=== PATIENT | female | born 1935 | race Caucasian/White ===

== ENCOUNTER → 2016-06-28 | Outpatient (CLI) | payer BC ==
--- NOTE | 2016-06-28 16:30 | MAMMOGRAPHY REPORT ---
BILATERAL DIGITAL SCREENING MAMMOGRAM WITH CAD: 06/28/2016 CLINICAL HISTORY: Routine screening. Patient has no complaints. TECHNIQUE: Bilateral CC and MLO views were obtained. Current study was also evaluated with a Comput er Aided Detection (CAD) system. COMPARISON: Comparison is made to exams dated: 06/24/2015 mammogram, 06/23/2014 mammogram, 06/20/2013 mammogram, 06/18/2012 mammogram, 04/28/2011 mammogram, and 03/17/2010 mammogram - [facility] enter. BREAST COMPOSITION: The tissue of both breasts is almost entirely fatty. FINDINGS: No suspicious mass, architectural distortion or cluster of microcalcifications is seen. IMPRESSION: ACR BI-RADS CATEGORY 1: NEGATIVE There is no mammographic evidence of malignancy. A 1 year screening mammogram is recommended. The p atient will receive written notification of the results. Approximately 10% of breast cancers are not detected with mammography. A negative mammographic repor t should not delay biopsy if a clinically suggestive mass is present. Traci Acosta M.D. ay/:06/28/2016 16:22:32 Tow Boat Captain: Zoila ALONZO(Deepak)(Mariella)(BD), [facility] letter sent: Normal 1/2 BI-RADS Code: ACR BI-RADS Category 1: Negative
== END | disposition home or self-care (01) ==
LOC: C.MAMM 10:26
PROVIDERS: ATTEND Family Medicine
DX: Z12.31 Encounter for screening mammogram for malignant neoplasm of breast (principal)

== ENCOUNTER → 2017-06-29 | Outpatient (CLI) | payer BC ==
--- NOTE | 2017-06-29 14:55 | MAMMOGRAPHY REPORT ---
BILATERAL DIGITAL SCREENING MAMMOGRAM TOMOSYNTHESIS WITH CAD: 06/29/2017 CLINICAL HISTORY: Routine screening. Patient has no complaints. TECHNIQUE: Breast tomosynthesis in addition to standard 2D mammography was performed. Current study was also evaluated with a Computer Aided Detection (CAD) system. COMPARISON: Comparison is made to exams dated: 06/28/2016 mammogram, 06/24/2015 mammogram, 06/23/2014 m ammogram, 06/20/2013 mammogram, 06/18/2012 mammogram, and 04/28/2011 mammogram - [facility] nter. BREAST COMPOSITION: The tissue of both breasts is almost entirely fatty. FINDINGS: No suspicious masses, calcifications, or areas of architectural distortion are noted in ei ther breast. There has been no significant interval change compared to prior exams. IMPRESSION: ACR BI-RADS CATEGORY 1: NEGATIVE There is no mammographic evidence of malignancy. A 1 year screening mammogram is recommended. The pa tient will receive written notification of the results. Approximately 10% of breast cancers are not detected with mammography. A negative mammographic report should not delay biopsy if a clinically suggestive mass is present. Mily Kendall M.D. /:06/29/2017 11:53:26 Surveying Technician: Jacquelin ALONZO(Deepak)(Mariella), [facility] letter sent: Normal 1/2 BI-RADS Code: ACR BI-RADS Category 1: Negative
== END | disposition home or self-care (01) ==
LOC: C.MAMM 11:10
PROVIDERS: ATTEND Family Medicine
DX: Z12.31 Encounter for screening mammogram for malignant neoplasm of breast (principal)

== ENCOUNTER 2024-01-14 14:34 | Observation (INO) ==
--- NOTE | 2024-01-14 14:58 | Emergency Department Note ---
Impression & Plan Knee pain, Ambulatory dysfunction, Effusion of right knee ED Provider Note NAME: CHRIS REID AGE: 88 SEX: F : 1935 ARRIVES VIA: Ambulance INFORMANT: Patient, EMS/nursing report ED PROVIDER(S): Randall Senior MD CHIEF COMPLAINT: Knee pain MEDICAL DECISION MAKING: Patient presents due to concern for knee pain. The patient had remarked that she thought maybe she had an insect bite weeks ago so blood work was obtained along with a Lyme's throughout the possibility of any sort of Lyme's arthritis although the patient does say that she has a prior history of pseudogout and this is similar. The patient is already anticoagulated and only has swelling to the knee there is no obvious swelling more proximally or distally do not believe requires a DVT ultrasound at this time. Patient's blood work shows a white count of 12 with a normal H&H and platelet count. The patient's kidney function is unremarkable. The patient should declined any pain medication although the patient recently taking prednisone and Tylenol. Lyme's negative. The patient did attempt to ambulate to and from the bathroom. X-ray of the knee does not show any obvious fracture or dislocation but does have some degenerative changes noted. Patient did have difficulty walking to from the bathroom. Patient does have decreased range of motion of the right knee secondary to pain. Believe stroke to be less likely in light of the knee swelling and pain. No sensory deficits able to flex and extend at the ankles without issue. Given the patient's ambulatory dysfunction and pain I did speak the on-call hospital service Dr. Caceres and the patient was admitted to medicine service. Discussion w/ other healthcare providers: Dr. Caceres inpatient medicine service Prior /Outside records reviewed: none Differential diagnosis: Fracture, subluxation, dislocation, contusion, ligamentous injury, neurovascular, compartment syndrome, rhabdomyolysis, as well as other pathologies. Diagnostics, as interpreted by me: ECG: None Cardiac monitoring: An order was placed for continuous cardiac monitoring. The monitor shows a rate of 85 with irregularly irregular rhythm. Patient was placed on pulse oximetry Medical decision rules: None Imaging studies: I informally interpreted the patient's knee x-ray does not show obvious fracture or dislocation with formal report to follow. HPI: Patient presents due to concern for right knee pain. The patient states that she was walking with some groceries and developed pain in the right knee. Patient denies any chest pains or shortness of breath no history of DVT or PE. The patient states that she has noted some swelling and has pain to the lateral as well as posterior aspect of the right knee. Patient reports that she does have a prior history of pseudogout. No history of gout. The patient did take a dose of prednisone and Tylenol but her pain is not improved and thus presented here for further evaluation treatment. Patient denies any numbness or weakness. Patient denies any trauma fall twisting turning or popping. Patient does report a known history of A-fib and does take Eliquis. She also follows with Dr. Grant. Patient states that she thought maybe she had a bug bite on her right lower extremity weeks ago but did not notice any obvious target rash. Patient denies any known Lyme's or tick bites in the past. PAST MEDICAL HISTORY: See Below PAST SURGICAL HISTORY: See Below SOCIAL HISTORY: See Below HOME MEDICATIONS: See Below ALLERGIES: See Below VITALS: See Below PHYSICAL EXAMINATION: GENERAL: NAD, non-toxic. EYE EXAM: Normal conjunctiva. PERRL, no anisocoria and EOM's grossly intact w/o pain. OROPHARYNX: Moist mucus membranes, grossly normal dentition. NECK: Trachea midline, no stridor. Supple, no nuchal rigidity, no adenopathy, non-tender. No signs of meningismus. FROM of the neck with good chin to chest and neck extension. LUNGS: Clear to auscultation. Normal chest wall mechanics. HEART: Irregularly irregular, no MRG. ABDOMEN: Abdomen soft, non-tender, no masses, no rebound or guarding. BACK: No CVA TTP. SKIN: No rashes and no bruising. UPPER EXTREMITIES: Upper extremities are grossly normal. LOWER EXTREMITIES: Mild effusion noted to the right knee, compartments are soft distally with no obvious lower extremity asymmetry bilaterally with exception of the right knee. No overlying erythema or calor to the right knee. Pain to the lateral and posterior aspect of the right knee without obvious deformity no leg length discrepancy. Good DP pulse in the right lower extremity. Compartments are soft throughout. NEURO EXAM: A&O x3, cranial nerves II-XII grossly intact, normal speech, moves all 4 extremities but with decreased range of motion of the right knee secondary to pain. Past Med/Surg History Problem List (Updated 01/14/24 @ 20:56 by Randall Senior MD) Effusion of right knee (Acute) Ambulatory dysfunction (Acute) Knee pain (Acute) Fatigue YOUSIF (dyspnea on exertion) Encounter for pre-operative examination Encounter for pre-operative examination Hypertension Atrial fibrillation dx 03/2023, currently on eliquis; f/u dr. grant Medical History Hypothyroidism Hx of wheezing "mainly in cold weather going upward">was given rescue inhaler, never used Osteoarthritis Acid reflux just occasional no meds Depression no meds Cardiac murmur dx 2019 Surgical History Hx of left cataract extraction History of right cataract surgery History of dilatation and curettage Skin cancer with removal to face and chest Social History Smoking Status: Never smoker Second Hand Exposure: No; Do You Dip or Chew Tobacco: No; Hx Alcohol Use: Yes Alcohol type: wine Hx Substance Use: No Preferred Language: Albanian Communication Ability: Effective Materials Tech Required: No Beliefs That Will Affect Care: None Current Living Situation: Other Current Living Situation Comment: [facility] Feels Safe at Home: Yes Assistive Devices: None Allergies Allergies Allergy/AdvReac Type Severity Reaction Status Date / Time No Known Allergies Allergy Verified 01/14/24 16:46 Home Meds Home Medications Medication Instructions Recorded Confirmed coenzyme Q10 100 mg capsule (Co 100 mg PO QPM 12/16/19 01/14/24 Q-10) apixaban 5 mg tablet (Eliquis) 5 mg PO BID 03/21/23 01/14/24 eplerenone 25 mg tablet 25 mg PO QAM 03/21/23 01/14/24 levothyroxine 25 mcg capsule 25 mcg PO QAM 03/21/23 01/14/24 diltiazem HCl 120 mg 120 mg PO DAILY 10/27/23 01/14/24 capsule,extended release 24 hr, controlled (DILT-XR) cholecalciferol (vitamin D3) 25 25 mcg PO QPM 01/14/24 01/14/24 mcg (1,000 unit) tablet (Vitamin D3) cyanocobalamin (vitamin B-12) 1,000 mcg PO QPM 01/14/24 01/14/24 1,000 mcg tablet (Vitamin B-12) Results & Data (ED) Vital Signs Vital Signs - 24 hr 01/14/24 14:40 01/14/24 14:55 01/14/24 14:56 Temperature 36.4 C L Temperature Source Oral Pulse Rate 103 H Pulse Rate [Apical] 91 H Pulse Rhythm [Apical] Regular Pulse Strength [Apical] Normal Respiratory Rate 20 19 Respiratory Effort / Characteristics Non-Labored Non-Labored Spontaneous Respiratory Depth Normal Normal Respiratory Pattern Regular Blood Pressure 175/100 H Blood Pressure [Right Arm] 181/99 H Blood Pressure Mean 125 Blood Pressure Mean [Right Arm] 126 Blood Pressure Position [Right Arm] Pulse Oximetry 96 98 98 Oxygen Delivery Method Room Air Room Air Room Air Sepsis Recent Fever Within 48 Hours No Sepsis New/Unexplained Change in Mental Status No Sepsis Action Taken by Nursing No Action Required 01/14/24 15:49 01/14/24 16:48 01/14/24 18:08 Temperature Temperature Source Pulse Rate 92 H Pulse Rate [Apical] 96 H 90 Pulse Rhythm [Apical] Regular Regular Pulse Strength [Apical] Normal Normal Respiratory Rate 22 18 Respiratory Effort / Characteristics Non-Labored Non-Labored Respiratory Depth Normal Normal Respiratory Pattern Regular Regular Blood Pressure Blood Pressure [Right Arm] 167/98 H Blood Pressure Mean Blood Pressure Mean [Right Arm] 121 Blood Pressure Position [Right Arm] Lying Lying Pulse Oximetry 96 98 Oxygen Delivery Method Room Air Room Air Sepsis Recent Fever Within 48 Hours Sepsis New/Unexplained Change in Mental Status Sepsis Action Taken by Nursing 01/14/24 18:52 01/14/24 20:29 Temperature Temperature Source Pulse Rate 86 Pulse Rate [Apical] 87 Pulse Rhythm [Apical] Regular Pulse Strength [Apical] Normal Respiratory Rate 17 Respiratory Effort / Characteristics Non-Labored Respiratory Depth Normal Respiratory Pattern Regular Blood Pressure Blood Pressure [Right Arm] 193/109 H Blood Pressure Mean Blood Pressure Mean [Right Arm] 137 Blood Pressure Position [Right Arm] Lying Pulse Oximetry 98 Oxygen Delivery Method Room Air Sepsis Recent Fever Within 48 Hours Sepsis New/Unexplained Change in Mental Status Sepsis Action Taken by [facility] Medications Current Medication List: was personally reviewed by me Laboratory Data Attestation: I reviewed the patient's lab results. 01/14/24 15:05 01/14/24 15:05 Lab Results 01/14/24 Range/Units 15:05 WBC 12.74 H (4.8-10.8) K/ul RBC 4.48 (4.20-5.40) M/uL Hgb 13.5 (12.0-16.0) g/dl Hct 40.6 (37.0-47.0) % MCV 90.6 (80.0-100.0) fL MCH 30.1 (25.0-34.0) pg MCHC 33.3 (32.0-36.0) g/dL RDW Std Deviation 45.5 (36.4-46.3) fL RDW Coeff of Libra 13.5 (11.5-14.5) % Plt Count 238 (130-400) K/uL MPV 10.0 (9.4-12.4) fL Immature Gran % (Auto) 0.5 % Neut % (Auto) 90.0 % Lymph % (Auto) 5.9 % Simpson % (Auto) 3.3 % Eos % (Auto) 0.1 % Baso % (Auto) 0.2 % Neut # (Auto) 11.46 H (1.40-6.50) K/uL Lymph # (Auto) 0.75 L (1.20-3.40) K/uL Simpson # (Auto) 0.42 (0.11-0.59) K/uL Eos # (Auto) 0.01 (0.00-0.50) K/uL Baso # (Auto) 0.03 (0.00-0.20) K/uL Immature Gran # (Auto) 0.07 (0.01-0.20) K/uL Sodium 139 (136-145) mmol/L Potassium 4.1 (3.5-5.1) mmol/L Chloride 104 (98-107) mmol/L Carbon Dioxide 26 (21-32) mmol/L Anion Gap 9 (3-11) BUN 25 H (6-23) mg/dl Creatinine 0.88 (0.6-1.2) mg/dl Est Cr Clr Drug Dosing 48.8 ml/min eGFR 63.96 BUN/Creatinine Ratio 28.4 H (10-20) Glucose 123 H (70-99(Fasting)) mg/dl Calcium 9.5 (8.6-10.3) mg/dl Total Bilirubin 0.4 (0.2-1.0) mg/dl AST 25 (13-39) U/L ALT 19 (7-52) U/L Alkaline Phosphatase 102 (34-104) U/L Total Protein 7.5 (6.0-8.3) gm/dl Albumin 4.5 (3.4-5.0) gm/dl Globulin 3.0 (2.5-4.0) gm/dl Albumin/Globulin Ratio 1.5 (0.9-2) Lyme Disease Screen Negative (Negative) Administered Medications Discontinued Medications Colchicine (Colchicine 0.6 Mg Tab) 0.6 mg PO NOW ONE Stop: 01/14/24 20:04 Last Admin: 01/14/24 20:30 Dose: 0.6 mg Documented By: TANISHA Lidocaine (Lidocaine 5% 1 Patch) 1 patch TD NOW STA Stop: 01/14/24 14:56 Last Admin: 01/14/24 15:07 Dose: 1 patch Documented By: TANISHA Methylprednisolone (Methylprednisolone 125 Mg/2 Ml Vial) 40 mg IV NOW STA Stop: 01/14/24 20:04 Last Admin: 01/14/24 20:30 Dose: 40 mg Documented By: TANISHA Morphine Sulfate (Morphine Sulfate 2 Mg/Ml Carp) 2 mg IV NOW STA Stop: 01/14/24 14:53 Last Admin: 01/14/24 15:18 Dose: Not Given Documented By: TANISHA Morphine Sulfate (Morphine Sulfate 2 Mg/Ml Carp) 2 mg IV NOW STA Stop: 01/14/24 18:22 Last Admin: 01/14/24 18:27 Dose: 2 mg Documented By: TANISHA Discharge Plan Visit Data Chief Complaint: Knee Injury/Pain Stated Complaint: KNEE INJURY ED Provider: Randall Senior Discharge Problem: Knee pain, Ambulatory dysfunction, Effusion of right knee Forms Stand Alone Forms: My [facility] Medical Referral Source Prescriptions Prescriptions: No Action Eliquis 5 mg tablet 5 mg PO BID eplerenone 25 mg tablet 25 mg PO QAM levothyroxine 25 mcg capsule 25 mcg PO QAM diltiazem HCl [DILT-XR] 120 mg capsule,ext.rel 24h degradable 120 mg PO DAILY coenzyme Q10 [Co Q-10] 100 mg Capsule 100 mg PO QPM cyanocobalamin (vitamin B-12) [Vitamin B-12] 1,000 mcg Tablet 1,000 mcg PO QPM cholecalciferol (vitamin D3) [Vitamin D3] 25 mcg (1,000 unit) Tablet 25 mcg PO QPM Referrals Referrals: Eladio Knight [Primary Care Provider] - Discharge Problem: Knee pain Qualifiers: Chronicity: acute Laterality: right Qualified Code(s): M25.561 - Pain in right knee
[2024-01-14] MEDS: LIDOCAINE 5% 1 PATCH TD STA (15:07)
[2024-01-14] MEDS: MoRPHine SULFATE 2 MG/ML CARP IV STA ×2 (15:18→18:27)
[2024-01-14 15:29] LABS: Basophils # (auto) 0.03 K/uL (0.00-0.20); Basophils % (auto) 0.2 %; Eosinophils # (auto) 0.01 K/uL (0.00-0.50); Eosinophils % (auto) 0.1 %; Hematocrit (blood only) 40.6 % (37.0-47.0); Hemoglobin 13.5 g/dl (12.0-16.0); Immature Granulocytes # (auto) 0.07 K/uL (0.01-0.20); Immature Granulocytes % (auto) 0.5 %; Lymphocytes # (auto) 0.75 K/uL (1.20-3.40); Lymphocytes % (auto) 5.9 %; Mean Corpuscular Hemoglobin 30.1 pg (25.0-34.0); Mean Corpuscular Hgb Conc 33.3 g/dL (32.0-36.0); Mean Corpuscular Volume 90.6 fL (80.0-100.0); Monocytes # (auto) 0.42 K/uL (0.11-0.59); Monocytes % (auto) 3.3 %; Neutrophils # (auto) 11.46 K/uL (1.40-6.50); Platelet Count 238 K/uL (130-400); RDW Coefficient of Variation 13.5 % (11.5-14.5); RDW Standard Deviation 45.5 fL (36.4-46.3); Red Blood Count 4.48 M/uL (4.20-5.40); White Blood Count 12.74 K/ul (4.8-10.8)
[2024-01-14 15:47] LABS: Alanine Aminotransferase 19 U/L (7-52); Albumin Globulin Ratio 1.5 (0.9-2); Albumin Level 4.5 gm/dl (3.4-5.0); Alkaline Phosphatase 102 U/L (34-104); Anion Gap 9 (3-11); Aspartate Aminotransferase 25 U/L (13-39); BUN Creatinine Ratio 28.4 (10-20); Bilirubin,Total 0.4 mg/dl (0.2-1.0); Blood Urea Nitrogen 25 mg/dl (6-23); Calcium 9.5 mg/dl (8.6-10.3); Carbon Dioxide 26 mmol/L (21-32); Chloride 104 mmol/L (98-107); Creatinine Clr Calc Pharmacy 48.8 ml/min; Glucose 123 mg/dl (70-99(Fasting)); Potassium 4.1 mmol/L (3.5-5.1); Sodium 139 mmol/L (136-145); Total Protein 7.5 gm/dl (6.0-8.3)
[2024-01-14] MEDS ORDERED: HYDROCODONE/ACETAMOPHEN 5/325MG TAB PO PRN (20:03)
[2024-01-14] MEDS ORDERED: MoRPHine SULFATE 2 MG/ML CARP IV PRN (20:03)
--- NOTE | 2024-01-14 20:08 | History & Physical Report ---
Date of Service January 14, 2024 Assessment & Plan (1) Effusion of right knee: (2) Ambulatory dysfunction: (3) Knee pain: (4) Hypertension: (5) Atrial fibrillation: Plan Large suprapatellar right knee effusion/[id number] medial compartment degeneration- Patient with acute onset of severe right knee pain, swelling and decreased ability to ambulate History of gout and pseudogout Add uric acid level to current labs Give Solu-Medrol 40 mg IV now, then 20 mg IV every 8 hours Colchicine 0.6 mg p.o. now, then twice daily Acetaminophen 650 mg by mouth every 6 hours as needed for mild pain or fever Hydrocodone/APAP 5/325, 1 every 6 hours as needed for moderate pain Morphine sulfate 2 mg IV every 3 hours as needed for severe pain Order CT scan of right knee without contrast Consult orthopedic surgery Dr. Reddy Atrial fibrillation/hypertension- Continue apixaban, diltiazem and eplerenone History of Present Illness Chief Complaint: The patient presents to the emergency department with the acute onset of severe right knee pain, with inability to flex her knee and walk. Primary Care Provider: Eladio Knight The patient is an 88-year-old female with a past medical history including hypertension, atrial fibrillation on chronic anticoagulation, vitamin D deficiency, hypertension, hypothyroidism, pseudogout and gout. She presents to the emergency department with the acute onset of severe right knee pain, with inability to bear weight due to the pain and decreased ability to ambulate due to the pain and stiffness. She has had both gout and pseudogout in this knee in the past, but has been several years, and the pain typically was not quite as severe and did not last as long. She did take a prednisone 10 mg pill and Tylenol without improvement while at home, and thus presented to the ED for assessment. She denies any recent change in oral intake. She denies any recent trauma. She questioned whether she may have had an insect bite several weeks ago, but did not have any associated rash. Allergies Allergy/AdvReac Type Severity Reaction Status Date / Time No Known Allergies Allergy Verified 01/14/24 16:46 Home Medications Medication Instructions Recorded Confirmed Type coenzyme Q10 100 mg capsule (Co 100 mg PO QPM 12/16/19 01/14/24 History Q-10) apixaban 5 mg tablet (Eliquis) 5 mg PO BID 03/21/23 01/14/24 History eplerenone 25 mg tablet 25 mg PO QAM 03/21/23 01/14/24 History levothyroxine 25 mcg capsule 25 mcg PO QAM 03/21/23 01/14/24 History diltiazem HCl 120 mg 120 mg PO DAILY 10/27/23 01/14/24 History capsule,extended release 24 hr, controlled (DILT-XR) cholecalciferol (vitamin D3) 25 25 mcg PO QPM 01/14/24 01/14/24 History mcg (1,000 unit) tablet (Vitamin D3) cyanocobalamin (vitamin B-12) 1,000 mcg PO QPM 01/14/24 01/14/24 History 1,000 mcg tablet (Vitamin B-12) Past Med/Surg History Problem List (Updated 01/14/24 @ 20:56 by Randall Senior MD) Effusion of right knee (Acute) Ambulatory dysfunction (Acute) Knee pain (Acute) Fatigue YOUSIF (dyspnea on exertion) Encounter for pre-operative examination Encounter for pre-operative examination Hypertension Atrial fibrillation dx 03/2023, currently on eliquis; f/u dr. grant Medical History Hypothyroidism Hx of wheezing "mainly in cold weather going upward">was given rescue inhaler, never used Osteoarthritis Acid reflux just occasional no meds Depression no meds Cardiac murmur dx 2019 Surgical History Hx of left cataract extraction History of right cataract surgery History of dilatation and curettage Skin cancer with removal to face and chest Social History Smoking Status: Never smoker Second Hand Exposure: No; Do You Dip or Chew Tobacco: No; Hx Alcohol Use: No Hx Substance Use: No Preferred Language: Sinhala Communication Ability: Effective Weed Cutter Required: No Beliefs That Will Affect Care: None Current Living Situation: Alone Current Living Situation Comment: [facility] Feels Safe at Home: Yes Assistive Devices: Other Review of Systems Review of Systems: The patient denies chest pain, palpitations, shortness of breath, dyspnea on exertion, cough, sore throat, fevers, chills, sweats, nausea, vomiting, diarrhea , constipation, abdominal pain, pelvic pain, blood in urine or stool, dysuria, urinary frequency or urgency, lightheadedness, dizziness, headache, memory loss, loss of consciousness, rash, abnormal bruising or bleeding, focal or generalized weakness, numbness or tingling in arms or left leg, generalized arthralgias or myalgias, back or neck pain, or night sweats. The review of systems is otherwise negative other than for that already noted above, and at least 10 systems have been reviewed. Physical Exam Physical Exam: The patient is awake, alert and oriented 3, well developed and well nourished, normocephalic and atraumatic, lying in bed and in no acute distress. HEENT--PERRL, EOMI, mucous membranes and oropharynx normal Neck--supple. No JVD. No bruits. Thyroid normal, trachea midline, no adenopathy. Heart--normal S1 and S2. No murmurs, rubs or gallops. Lungs--clear bilaterally, no respiratory distress, no accessory muscle use. Abdomen--normal bowel sounds and soft. Nontender. Nondistended, no hernias or masses, no organomegaly. Extremities--right knee in Reddy wrap with ice and Lidoderm patch applied Dermatologic--normal skin turgor, normal color, no abnormal lymph nodes, no rash. Neurologic--cranial nerves II through XII grossly intact. Rheumatologic--normal range of motion except for right knee Psychiatric--normal affect. Results & Data Results & Data Vital Signs (Past 12 Hours) Vital Signs Temp Pulse Pulse Resp BP BP Pulse Ox 01/14/24 18:52 86 01/14/24 18:08 90 18 98 01/14/24 16:48 96 H 22 167/98 H 96 01/14/24 15:49 92 H 01/14/24 14:56 98 01/14/24 14:55 91 H 19 181/99 H 98 01/14/24 14:40 36.4 C L 103 H 20 175/100 H 96 O2 Del Method 01/14/24 18:52 01/14/24 18:08 Room Air 01/14/24 16:48 Room Air 01/14/24 15:49 01/14/24 14:56 Room Air 01/14/24 14:55 Room Air 01/14/24 14:40 Room Air Laboratory Results Laboratory Results WBC 12.74 K/ul (4.8-10.8) H 01/14/24 15:05 RBC 4.48 M/uL (4.20-5.40) 01/14/24 15:05 Hgb 13.5 g/dl (12.0-16.0) 01/14/24 15:05 Hct 40.6 % (37.0-47.0) 01/14/24 15:05 MCV 90.6 fL (80.0-100.0) 01/14/24 15:05 MCH 30.1 pg (25.0-34.0) 01/14/24 15:05 MCHC 33.3 g/dL (32.0-36.0) 01/14/24 15:05 RDW Std Deviation 45.5 fL (36.4-46.3) 01/14/24 15:05 RDW Coeff of Libra 13.5 % (11.5-14.5) 01/14/24 15:05 Plt Count 238 K/uL (130-400) 01/14/24 15:05 MPV 10.0 fL (9.4-12.4) 01/14/24 15:05 Immature Gran % (Auto) 0.5 % 01/14/24 15:05 Neut % (Auto) 90.0 % 01/14/24 15:05 Lymph % (Auto) 5.9 % 01/14/24 15:05 [place] % (Auto) 3.3 % 01/14/24 15:05 Eos % (Auto) 0.1 % 01/14/24 15:05 Baso % (Auto) 0.2 % 01/14/24 15:05 Neut # (Auto) 11.46 K/uL (1.40-6.50) H 01/14/24 15:05 Lymph # (Auto) 0.75 K/uL (1.20-3.40) L 01/14/24 15:05 [place] # (Auto) 0.42 K/uL (0.11-0.59) 01/14/24 15:05 Eos # (Auto) 0.01 K/uL (0.00-0.50) 01/14/24 15:05 Baso # (Auto) 0.03 K/uL (0.00-0.20) 01/14/24 15:05 Immature Gran # (Auto) 0.07 K/uL (0.01-0.20) 01/14/24 15:05 Sodium 139 mmol/L (136-145) 01/14/24 15:05 Potassium 4.1 mmol/L (3.5-5.1) 01/14/24 15:05 Chloride 104 mmol/L (98-107) 01/14/24 15:05 Carbon Dioxide 26 mmol/L (21-32) 01/14/24 15:05 Anion Gap 9 (3-11) 01/14/24 15:05 BUN 25 mg/dl (6-23) H 01/14/24 15:05 Creatinine 0.88 mg/dl (0.6-1.2) 01/14/24 15:05 Est Cr Clr Drug Dosing 48.8 ml/min 01/14/24 15:05 eGFR 63.96 01/14/24 15:05 BUN/Creatinine Ratio 28.4 (10-20) H 01/14/24 15:05 Glucose 123 mg/dl (70-99(Fasting)) H 01/14/24 15:05 Calcium 9.5 mg/dl (8.6-10.3) 01/14/24 15:05 Total Bilirubin 0.4 mg/dl (0.2-1.0) 01/14/24 15:05 AST 25 U/L (13-39) 01/14/24 15:05 ALT 19 U/L (7-52) 01/14/24 15:05 Alkaline Phosphatase 102 U/L (34-104) 01/14/24 15:05 C-Reactive Protein < 0.50 mg/dl (0-0.5) 01/14/24 15:05 Total Protein 7.5 gm/dl (6.0-8.3) 01/14/24 15:05 Albumin 4.5 gm/dl (3.4-5.0) 01/14/24 15:05 Globulin 3.0 gm/dl (2.5-4.0) 01/14/24 15:05 Albumin/Globulin Ratio 1.5 (0.9-2) 01/14/24 15:05 Lyme Disease Screen Negative (Negative) 01/14/24 15:05 Impressions Knee X-Ray 01/14/24 16:43 EXAMINATION: X-ray knee right 1 or 2 view CLINICAL HISTORY: Right knee pain, swelling, no injury PRIORS: None TECHNIQUE: 2 views right knee FINDINGS: Bone stock is normal. Moderate to advanced degenerative change of the medial compartment. Moderate degenerative change of the lateral and patellofemoral compartment. Chondrocalcinosis is noted. A large suprapatella joint effusion present on the crosstable lateral. No displaced or depressed fracture or dislocation. An enthesophyte of the quadriceps insertion is noted on the patella. IMPRESSION: 1. Large suprapatellar joint effusion. 2. [id number] degenerative change of the medial compartment. 3. No acute fracture or dislocation. Electronically signed by Reta Carranza 01-14-2024 5:29 PM Code Status & VTE Plan Code Status Full code PG Care Time/CCT Total # of Minutes Spent Total Time Spent with Patient: Total time spent is greater than 50% in coordination of care (as documented) at patient's floor/unit and/or counseling patient: Coding Level of Care Code 23888 INT INP/OBS CARE 3/75MIN Diagnoses Effusion of right knee M25.461 Ambulatory dysfunction R26.2 Knee pain M25.561 Chronicity: acute Laterality: right Primary hypertension I10 Hypertension type: primary hypertension Longstanding persistent atrial fibrillation I48.11 Atrial fibrillation type: longstanding persistent (3) Knee pain Chronicity: acute Laterality: right Qualified Code(s): M25.561 - Pain in right knee (4) Hypertension Hypertension type: primary hypertension Qualified Code(s): I10 - Essential (primary) hypertension (5) Atrial fibrillation Atrial fibrillation type: longstanding persistent Qualified Code(s): I48.11 - Longstanding persistent atrial fibrillation
[2024-01-14] MEDS: COLCHICINE 0.6 MG TAB PO ONE (20:30)
[2024-01-14] MEDS: methylPREDNISolone 125 MG/2 ML VIAL IV STA (20:30)
--- NOTE | 2024-01-14 21:28 | XRay Report ---
EXAMINATION: X-ray knee right 1 or 2 view CLINICAL HISTORY: Right knee pain, swelling, no injury PRIORS: None TECHNIQUE: 2 views right knee FINDINGS: Bone stock is normal. Moderate to advanced degenerative change of the medial compartment. Moderate degenerative change of the lateral and patellofemoral compartment. Chondrocalcinosis is noted. A large suprapatella joint effusion present on the crosstable lateral. No displaced or depressed fracture or dislocation. An enthesophyte of the quadriceps insertion is noted on the patella. IMPRESSION: 1. Large suprapatellar joint effusion. 2. [id number] degenerative change of the medial compartment. 3. No acute fracture or dislocation. Electronically signed by Reta Carranza 01-14-2024 5:29 PM
[2024-01-14 21:45] LABS: C Reactive Protein < 0.50 mg/dl (0-0.5)
[2024-01-14] MEDS ORDERED: ONDANSETRON INJ 2 MG/ML 2 ML VIAL IV PRN (21:50)
[2024-01-14] MEDS ORDERED: NON-FORMULARY MEDICATION (Coenzyme Q10 [Co Q-10] 100 mg Capsule) PO SCH (21:50)
[2024-01-14] MEDS: CYANOCOBALAMIN (B-12) 500 MCG TABLET PO SCH (22:13)
[2024-01-14] MEDS: CHOLECALCIFEROL 25 MCG (1000 UNITS) TAB PO SCH (22:13)
[2024-01-14] MEDS: APIXABAN 5 MG TABLET PO SCH (22:13)
[2024-01-14 23:58] LABS: Uric Acid 5.5 mg/dl (2.6-7.2)
--- NOTE | 2024-01-15 00:40 | CT Scan Report ---
Exam(s): CT RIGHT KNEE Without Contrast EXAM: CT Right Lower Extremity Without Intravenous Contrast, Knee CLINICAL HISTORY: Reason for exam: pain, swelling, stiffness, no trauma. TECHNIQUE: Axial computed tomography images of the right knee without intravenous contrast. CTDI is 25.05 mGy and DLP is 482.18 mGy-cm. Automated exposure control was utilized for the study. A dose lowering technique was utilized adhering to the principles of ALARA. COMPARISON: No relevant prior studies available. FINDINGS: Bones/joints: No acute fracture. Moderate tricompartmental osteoarthritis. Chondrocalcinosis of the menisci. Bones appear groundglass as can be seen in the setting of renal osteodystrophy. There is a large joint effusion measuring 42 HU. Soft tissues are unremarkable. No dislocation. Soft tissues: Unremarkable. IMPRESSION: 1. Moderate tricompartmental osteoarthritis and moderate sized hemarthrosis. Electronically signed by: Blaine Sofia MD 01/15/24 00:38 AM
[2024-01-15] MEDS: methylPREDNISolone 20 MG in SYRINGE 0 ML IV SCH (05:38)
[2024-01-15] MEDS: LEVOTHYROXINE SODIUM 25 MCG TABLET PO SCH (05:38)
[2024-01-15 06:26] LABS: Hematocrit (blood only) 40.7 % (37.0-47.0); Hemoglobin 13.9 g/dl (12.0-16.0); Mean Corpuscular Hemoglobin 30.8 pg (25.0-34.0); Mean Corpuscular Hgb Conc 34.2 g/dL (32.0-36.0); Mean Corpuscular Volume 90.2 fL (80.0-100.0); Mean Platelet Volume 9.9 fL (9.4-12.4); Platelet Count 232 K/uL (130-400); RDW Coefficient of Variation 13.6 % (11.5-14.5); RDW Standard Deviation 44.8 fL (36.4-46.3); Red Blood Count 4.51 M/uL (4.20-5.40); White Blood Count 8.49 K/ul (4.8-10.8)
[2024-01-15 06:51] LABS: Basophils # (auto) 0.01 K/uL (0.00-0.20); Basophils % (auto) 0.1 %; Immature Granulocytes # (auto) 0.06 K/uL (0.01-0.20); Immature Granulocytes % (auto) 0.7 %; Lymphocytes # (auto) 0.39 K/uL (1.20-3.40); Lymphocytes % (auto) 4.6 %; Monocytes # (auto) 0.04 K/uL (0.11-0.59); Monocytes % (auto) 0.5 %; Neutrophils # (auto) 7.99 K/uL (1.40-6.50); Neutrophils % (auto) 94.1 %
[2024-01-15 07:00] LABS: Albumin Level 4.2 gm/dl (3.4-5.0); Calcium 9.3 mg/dl (8.6-10.3); Creatinine Clr Calc Pharmacy 53.6 ml/min; Phosphorus 3.6 mg/dl (2.5-4.9); Potassium 4.1 mmol/L (3.5-5.1)
[2024-01-15] MEDS ORDERED: methylPREDNISolone 1000 MG/16 ML IV SCH (07:00)
[2024-01-15] MEDS: COLCHICINE 0.6 MG TAB PO SCH (08:39)
[2024-01-15] MEDS: dilTIAZem HCL 120 MG CAPCR PO SCH (08:40)
[2024-01-15] MEDS: EPLERENONE 25 MG PO SCH (10:39)
[2024-01-15] MEDS: ACETAMINOPHEN 325 MG TAB PO PRN (11:48)
--- NOTE | 2024-01-15 15:34 | Orthopedic Consultation ---
Date of Service January 15, 2024 Assessment & Plan (1) Hemarthrosis, right knee: She has a h/o gout and pseudogout, as well as anticoagulation use. I recommended aspiration of the knee today and she agreed to proceed. I aspirated approx 30 ml of dark blood from the knee. We will send this off for cell count and crystal analysis. She did feel some improvement after the aspiration. Was able to do a straight leg raise with some assistance and less pain after the aspiration. Discussed with Dr Reddy. Will continue to follow labs. History of Present Illness Reason for Consultation: . Requesting Physician: . Attending Physician: Omi Cisneros DO 88 year old patient with h/o gout/pseudogout, also on eliquis as an outpatient. Developed intermittent right knee pain over the last 3 weeks. Denies any injury. Exercises regularly. Yesterday her pain worsened and she was unable to weight bear on the right leg. She was admitted to the hospitalist service. No fevers. Allergies Allergy/AdvReac Type Severity Reaction Status Date / Time No Known Allergies Allergy Verified 01/14/24 16:46 Home Medications Medication Instructions Recorded Confirmed Type coenzyme Q10 100 mg capsule (Co 100 mg PO QPM 12/16/19 01/14/24 History Q-10) apixaban 5 mg tablet (Eliquis) 5 mg PO BID 03/21/23 01/14/24 History eplerenone 25 mg tablet 25 mg PO QAM 03/21/23 01/14/24 History levothyroxine 25 mcg capsule 25 mcg PO QAM 03/21/23 01/14/24 History diltiazem HCl 120 mg 120 mg PO DAILY 10/27/23 01/14/24 History capsule,extended release 24 hr, controlled (DILT-XR) cholecalciferol (vitamin D3) 25 25 mcg PO QPM 01/14/24 01/14/24 History mcg (1,000 unit) tablet (Vitamin D3) cyanocobalamin (vitamin B-12) 1,000 mcg PO QPM 01/14/24 01/14/24 History 1,000 mcg tablet (Vitamin B-12) Past Med/Surg History Problem List (Updated 01/15/24 @ 15:32 by Minh Bergman PA-C) Hemarthrosis, right knee Effusion of right knee (Acute) Ambulatory dysfunction (Acute) Knee pain (Acute) Fatigue YOUSIF (dyspnea on exertion) Encounter for pre-operative examination Encounter for pre-operative examination Hypertension Atrial fibrillation dx 03/2023, currently on eliquis; f/u dr. grant Medical History Hypothyroidism Hx of wheezing "mainly in cold weather going upward">was given rescue inhaler, never used Osteoarthritis Acid reflux just occasional no meds Depression no meds Cardiac murmur dx 2019 Surgical History Hx of left cataract extraction History of right cataract surgery History of dilatation and curettage Skin cancer with removal to face and chest Social History Smoking Status: Never smoker Second Hand Exposure: No; Do You Dip or Chew Tobacco: No; Tobacco Cessation Education Requested by Patient: No Hx Alcohol Use: No Hx Substance Use: No Preferred Language: [place] Communication Ability: Effective Rn Progressive Care Unit Required: No Beliefs That Will Affect Care: None Current Living Situation: Alone Current Living Situation Comment: Independent living at [facility] Other Information That Helps Us Care for You: No Feels Safe at Home: Yes Safety Concerns: Feels Safe At This Time Assistive Devices: Other Assistive Devices Comment: walking stick Review of Systems All systems reviewed & are unremarkable except as noted in HPI & below. Physical Exam .Alert and oriented. NAD Right leg: large knee effusion. Generalized tenderness around right knee. No erythema. Skin intact. Unable to do straight leg raise. Able to dorsiflex and plantarflex. Results & Data Results & Data Laboratory Results . Diagnostic Findings .xrays of the right knee shows advanced knee djd and chondrocalcinosis. PG Care Time/CCT Total # of Minutes Spent Total Time Spent with Patient: Total time spent is greater than 50% in coordination of care (as documented) at patient's floor/unit and/or counseling patient: Coding Level of Care Code 86118 IN/OBS CONSULT LVL 3,45M (25 - SIGNIFICANT, SEPARATELY IDENTIFIABLE ) Diagnoses Hemarthrosis, right knee M25.061
[2024-01-15 16:39] LABS: Appearance Synovial Fluid Bloody; Color Synovial Fluid Red; Mononuclear WBC Synovial 11.3 %; Polynuclear WBC Synovial 88.7 %; RBC Synovial Fluid Auto 2655000 /uL; Source Synovial Fluid Right Knee; WBC Synovial Fluid Auto 18675 /ul (0-200)
--- NOTE | 2024-01-15 17:11 | Hospitalist Progress Note ---
Date of Service January 15, 2024 Assessment & Plan (1) Hemarthrosis, right knee: (2) Effusion of right knee: (3) Ambulatory dysfunction: (4) Knee pain: (5) Atrial fibrillation: Plan Hemarthrosis R. knee, Effusion, knee pain - Knee CT: hemarthrosis in R knee - Uric acid level wnl - Ortho consulted: aspiration of knee completed and synovial fluid/blood sent for analysis - Colchicine BID, Solumedrol 20mg q8h - hydrocodone/morphine for pain management Ambulatory dysfunction - PT/OT consults A-fib - Eliquis held for active bleed in R. knee joint Admission and Anticipated Discharge Date Admission Date: January 14, 2024 Supervising Physician Co-Signing Physician Notes I personally examined the patient and verified all duarte points of history and exam, discussed case, and agree with decision making with Dr Bennett cardona feeling somewhat better after aspiration pipe noted nad once at rest - seen walking back from bathroom - able to walk slowly w walker but painful. knee without erythema knee effusion/pain - most likely gout with added blood from anticoagulation. ortho assistance appreciated await fluid studies. continue current management. otherwise as above Subjective Patient seen resting comfortably in room this am. Patient complains of ongoing leg pain reduced from 8/10 last night to 4/10 this morning. Patient denies fever, chills, abdominal pain, nausea, vomiting, SOB, cough, wheeze. Patient's scans and previous hx of gout and pseudogout were discussed. Patient explains that in the past gout episodes were more mild without swelling or sever pain. She reports that before going to the ED she visited her PCP and was on prednisone and felt that her symptoms improved for a few days before acutely worsening resulting in ED admit. Today the patient is in no acute distress. Physical Exam Physical Exam: General: patient resting comfortably, NAD, non-toxic in appearance, answers questions appropriately. Skin: warm, dry, intact HEENT: NC/AT, anicteric sclera, conjunctiva without injection, moist mucus membranes. Heart: +S1/S2, regular, no m/r/g Lungs: equal air entry bilaterally, no rales/rhonchi/wheezes Abd: +BS, soft, NT/ND Ext: warm, no clubbing/cyanosis or edema, Eun's neg. Neuro: nonfocal, speech intact, no facial droop, moving all extremities. Results & Data Results & Data Vital Signs (Past 12 Hours) Vital Signs Temp Pulse Resp BP Pulse Ox O2 Del Method 01/15/24 14:06 36.6 C 95 H 16 176/95 H 96 Room Air 01/15/24 08:08 Room Air 01/15/24 07:12 36.2 C L 95 H 16 179/108 H 96 Room Air Resident Activity Tracking Resident Involvement: Resident Care Provided Care Provided: Adult Hospital Medicine (4) Knee pain Chronicity: acute Laterality: right Qualified Code(s): M25.561 - Pain in right knee (5) Atrial fibrillation Atrial fibrillation type: longstanding persistent Qualified Code(s): I48.11 - Longstanding persistent atrial fibrillation
--- NOTE | 2024-01-15 19:17 | Billing Data ---
Date of Service January 15, 2024 Coding Level of Care Code 72855 SUB INP/OBS CARE
[2024-01-16 06:22] LABS: Hematocrit (blood only) 38.7 % (37.0-47.0); Hemoglobin 13.2 g/dl (12.0-16.0); Mean Corpuscular Hgb Conc 34.1 g/dL (32.0-36.0); Mean Platelet Volume 10.1 fL (9.4-12.4); Platelet Count 236 K/uL (130-400); RDW Coefficient of Variation 13.8 % (11.5-14.5); RDW Standard Deviation 44.8 fL (36.4-46.3)
[2024-01-16 06:37] LABS: BUN Creatinine Ratio 32.1 (10-20); Calcium 9.2 mg/dl (8.6-10.3); Creatinine Clr Calc Pharmacy 50.9 ml/min; Phosphorus 3.7 mg/dl (2.5-4.9); Potassium 4.5 mmol/L (3.5-5.1)
[2024-01-16 06:39] LABS: Basophils # (auto) 0.01 K/uL (0.00-0.20); Basophils % (auto) 0.1 %; Eosinophils # (auto) 0.01 K/uL (0.00-0.50); Eosinophils % (auto) 0.1 %; Immature Granulocytes % (auto) 0.7 %; Lymphocytes # (auto) 0.56 K/uL (1.20-3.40); Lymphocytes % (auto) 4.1 %; Monocytes # (auto) 0.33 K/uL (0.11-0.59); Monocytes % (auto) 2.4 %; Neutrophils # (auto) 12.79 K/uL (1.40-6.50); Neutrophils % (auto) 92.6 %; Polychromasia 1+
--- NOTE | 2024-01-16 06:44 | Hospitalist Progress Note ---
Date of Service January 16, 2024 Assessment & Plan (1) Hemarthrosis, right knee: (2) Effusion of right knee: (3) Ambulatory dysfunction: (4) Knee pain: (5) Atrial fibrillation: Plan Hemarthrosis R. knee, Effusion, knee pain - Knee CT: hemarthrosis in R knee - Uric acid level wnl - Ortho consulted: aspiration of knee completed and synovial fluid/blood sent for analysis - Colchicine BID, Solumedrol 20mg q8h - hydrocodone/morphine for pain management - Knee synovial fluid: Positive for blood and WBC, negative for crystals - Likely spontaneous hemarthrosis following click in knee, exacerbated by eliquis use. - Patient d/c tomorrow with eliquis held for 1 week to allow for healing of hemarthrosis Ambulatory dysfunction - PT/OT consults - Recommend further rehab, awaiting insurance approval A-fib - Eliquis held for active bleed in R. knee joint - Plans to d/c tomorrow and hold eliquis for 1 week to allow for clotting in the knee joint. Admission and Anticipated Discharge Date Admission Date: January 14, 2024 Supervising Physician Co-Signing Physician Notes I personally examined the patient and verified all duarte points of history and exam, discussed case, and agree with decision making with Dr Guajardo still far from baseline but pain and mobility improving vitlas noted nad breathing unlabored no accessory muscles good effort knee effusion/pain - all blood, no crystals - spontaneous hemarthrosis in the setting of chronic anticoagulation use for afib. improving. PT/OT eval and treat. anticipate need for short stay at SNF for ongoing therapy. resume anticoagulation ~1wk otherwise as above Subjective Patient knee pain improved from yesterday, however still difficulty ambulating with walker and difficulty weight bearing on afflicted lower extremity. No fevers, chills, chest pain, SOB, cough, abdominal pain, nausea or vomiting. Physical Exam Physical Exam: General: patient resting comfortably, NAD, non-toxic in appearance, answers questions appropriately. Skin: warm, dry, intact HEENT: NC/AT, anicteric sclera, conjunctiva without injection, moist mucus membranes. Heart: +S1/S2, regular, no m/r/g Lungs: equal air entry bilaterally, no rales/rhonchi/wheezes Abd: +BS, soft, NT/ND Ext: warm, no clubbing/cyanosis or edema, Eun's neg. Neuro: nonfocal, speech intact, no facial droop, moving all extremities. Results & Data Results & Data Vital Signs (Past 12 Hours) Vital Signs Temp Pulse Resp BP Pulse Ox O2 Del Method 01/15/24 20:24 36.8 C 87 16 159/85 H 94 Room Air 01/15/24 20:00 Room Air Resident Activity Tracking Resident Involvement: Resident Care Provided Care Provided: Adult Hospital Medicine (4) Knee pain Chronicity: acute Laterality: right Qualified Code(s): M25.561 - Pain in right knee (5) Atrial fibrillation Atrial fibrillation type: longstanding persistent Qualified Code(s): I48.11 - Longstanding persistent atrial fibrillation
--- NOTE | 2024-01-16 15:25 | Orthopedic Progress Note ---
Date of Service January 16, 2024 Assessment & Plan (1) Hemarthrosis, right knee: Doing better today after knee aspiration yesterday. Continue PT/Ot. She can wbat. Probably will need the walker for a while for assistance. We discussed bracing but will hold off at this time. Anticoagulation per hospitalist service. Follow up with orthopedics as needed. Subjective . 88 year old patient with right knee hemarthrosis, 1 day s/p knee aspiration. Synovial wbc 18,675, no crystals. She states her knee feels much better today. Still having trouble lifting her leg but has been able to walk with a walker in therapy. Review of Systems All systems reviewed & are unremarkable except as noted in HPI & below. Physical Exam . Right knee/leg: no pain with hip ROM. Small knee effusion. Unable to do a good straight leg raise independently. Has some ability with assistance. No defect in extensor mechanism. Results & Data Results & Data Laboratory Results . Diagnostic Findings . PG Care Time/CCT Total # of Minutes Spent Total Time Spent with Patient: Total time spent is greater than 50% in coordination of care (as documented) at patient's floor/unit and/or counseling patient: Coding Level of Care Code 12377 SUB INP/OBS CARE 2/35MIN Diagnoses Hemarthrosis, right knee M25.061
--- NOTE | 2024-01-16 17:34 | Billing Data ---
Date of Service January 16, 2024 Coding Level of Care Code 76577 SUB INP/OBS CARE
[2024-01-17 07:21] VITALS: RESP 16; TEMP 97.3; O2SAT 96
--- NOTE | 2024-01-17 07:49 | Discharge Summary ---
Date of Service January 17, 2024 Admission HPI Per Admitting Provider The patient is an 88-year-old female with a past medical history including hypertension, atrial fibrillation on chronic anticoagulation, vitamin D deficiency, hypertension, hypothyroidism, pseudogout and gout. She presents to the emergency department with the acute onset of severe right knee pain, with inability to bear weight due to the pain and decreased ability to ambulate due to the pain and stiffness. She has had both gout and pseudogout in this knee in the past, but has been several years, and the pain typically was not quite as severe and did not last as long. She did take a prednisone 10 mg pill and Tylenol without improvement while at home, and thus presented to the ED for assessment. She denies any recent change in oral intake. She denies any recent trauma. She questioned whether she may have had an insect bite several weeks ago, but did not have any associated rash. Principal Diagnosis R. Knee Hemarthrosis Discharge Exam General: patient resting comfortably, NAD, non-toxic in appearance, answers questions appropriately. Skin: warm, dry, intact HEENT: NC/AT, anicteric sclera, conjunctiva without injection, moist mucus membranes. Heart: +S1/S2, regular, no m/r/g Lungs: equal air entry bilaterally, no rales/rhonchi/wheezes Abd: +BS, soft, NT/ND Ext: warm, no clubbing/cyanosis or edema, Eun's neg. Neuro: nonfocal, speech intact, no facial droop, moving all extremities. Discharge Data Allergies Allergy/AdvReac Type Severity Reaction Status Date / Time No Known Allergies Allergy Verified 01/14/24 16:46 Consultations 01/14/24 19:18 ED Decision to Admit Stat 01/14/24 23:23 Consult Orthopedic Surgery Routine Ordered Studies 01/14/24 19:56 CT knee RT wo con Stat Laboratory Results WBC 11.69 K/ul (4.8-10.8) H 01/17/24 07:32 RBC 4.72 M/uL (4.20-5.40) 01/17/24 07:32 Hgb 14.3 g/dl (12.0-16.0) 01/17/24 07:32 Hct 41.6 % (37.0-47.0) 01/17/24 07:32 MCV 88.1 fL (80.0-100.0) 01/17/24 07:32 MCH 30.3 pg (25.0-34.0) 01/17/24 07: MCHC 34.4 g/dL (32.0-36.0) 01/17/24 07:32 RDW Std Deviation 44.6 fL (36.4-46.3) 01/17/24 07: RDW Coeff of Libra 13.8 % (11.5-14.5) 01/17/24 07:32 Plt Count 239 K/uL (130-400) 01/17/24 07:32 MPV 10.1 fL (9.4-12.4) 01/17/24 07:32 Immature Gran % (Auto) 1.3 % 01/17/24 07:32 Neut % (Auto) 91.3 % 01/17/24 07:32 Lymph % (Auto) 4.4 % 01/17/24 07:32 [place] % (Auto) 2.8 % 01/17/24 07:32 Eos % (Auto) 0.0 % 01/17/24 07:32 Baso % (Auto) 0.2 % 01/17/24 07:32 Neut # (Auto) 10.68 K/uL (1.40-6.50) H 01/17/24 07:32 Lymph # (Auto) 0.51 K/uL (1.20-3.40) L 01/17/24 07:32 [place] # (Auto) 0.33 K/uL (0.11-0.59) 01/17/24 07:32 Eos # (Auto) 0.00 K/uL (0.00-0.50) 01/17/24 07:32 Baso # (Auto) 0.02 K/uL (0.00-0.20) 01/17/24 07:32 Immature Gran # (Auto) 0.15 K/uL (0.01-0.20) 01/17/24 07:32 Polychromasia 1+ 01/16/24 05:43 Sodium 137 mmol/L (136-145) 01/17/24 07:32 Potassium 4.3 mmol/L (3.5-5.1) 01/17/24 07:32 Chloride 102 mmol/L (98-107) 01/17/24 07:32 Carbon Dioxide 26 mmol/L (21-32) 01/17/24 07:32 Anion Gap 9 (3-11) 01/17/24 07:32 BUN 33 mg/dl (6-23) H 01/17/24 07:32 Creatinine 0.85 mg/dl (0.6-1.2) 01/17/24 07:32 Est Cr Clr Drug Dosing 46.7 ml/min 01/17/24 07:32 eGFR 66.68 01/17/24 07:32 BUN/Creatinine Ratio 38.8 (10-20) H 01/17/24 07:32 Glucose 126 mg/dl (70-99(Fasting)) H 01/17/24 07:32 Uric Acid 5.5 mg/dl (2.6-7.2) 01/14/24 15:05 Calcium 9.3 mg/dl (8.6-10.3) 01/17/24 07:32 Phosphorus 3.8 mg/dl (2.5-4.9) 01/17/24 07:32 Total Bilirubin 0.4 mg/dl (0.2-1.0) 01/14/24 15:05 AST 25 U/L (13-39) 01/14/24 15:05 ALT 19 U/L (7-52) 01/14/24 15:05 Alkaline Phosphatase 102 U/L (34-104) 01/14/24 15:05 C-Reactive Protein < 0.50 mg/dl (0-0.5) 01/14/24 15:05 Total Protein 7.5 gm/dl (6.0-8.3) 01/14/24 15:05 Albumin 4.1 gm/dl (3.4-5.0) 01/17/24 07:32 Globulin 3.0 gm/dl (2.5-4.0) 01/14/24 15:05 Albumin/Globulin Ratio 1.5 (0.9-2) 01/14/24 15:05 Fluid Comment 01/15/24 16:11 Synovial Source Right Knee 01/15/24 16:11 Synovial Color Red 01/15/24 16:11 Synovial Appearance Bloody 01/15/24 16:11 Synovial WBC (Auto) 63851 /ul (0-200) H 01/15/24 16:11 Synovial RBC (Auto) 3896392 /uL 01/15/24 16:11 Synovial Polynuclear % 88.7 % 01/15/24 16:11 Synovial Mononuclear % 11.3 % 01/15/24 16:11 Synovial Crystals 01/15/24 16:12 Lyme Disease Screen Negative (Negative) 01/14/24 15:05 Impressions Knee X-Ray 01/14/24 16:43 EXAMINATION: X-ray knee right 1 or 2 view CLINICAL HISTORY: Right knee pain, swelling, no injury PRIORS: None TECHNIQUE: 2 views right knee FINDINGS: Bone stock is normal. Moderate to advanced degenerative change of the medial compartment. Moderate degenerative change of the lateral and patellofemoral compartment. Chondrocalcinosis is noted. A large suprapatella joint effusion present on the crosstable lateral. No displaced or depressed fracture or dislocation. An enthesophyte of the quadriceps insertion is noted on the patella. IMPRESSION: 1. Large suprapatellar joint effusion. 2. [id number] degenerative change of the medial compartment. 3. No acute fracture or dislocation. Electronically signed by Reta Carranza 01-14-2024 5:[address] 01/14/24 19:56 Exam(s): CT RIGHT KNEE Without Contrast EXAM: CT Right Lower Extremity Without Intravenous Contrast, Knee CLINICAL HISTORY: Reason for exam: pain, swelling, stiffness, no trauma. TECHNIQUE: Axial computed tomography images of the right knee without intravenous contrast. CTDI is 25.05 mGy and DLP is 482.18 mGy-cm. Automated exposure control was utilized for the study. A dose lowering technique was utilized adhering to the principles of ALARA. COMPARISON: No relevant prior studies available. FINDINGS: Bones/joints: No acute fracture. Moderate tricompartmental osteoarthritis. Chondrocalcinosis of the menisci. Bones appear groundglass as can be seen in the setting of renal osteodystrophy. There is a large joint effusion measuring 42 HU. Soft tissues are unremarkable. No dislocation. Soft tissues: Unremarkable. IMPRESSION: 1. Moderate tricompartmental osteoarthritis and moderate sized hemarthrosis. Electronically signed by: Blaine Sofia MD 01/15/24 00:38 AM Hospital Course (1) Hemarthrosis, right knee: (2) Effusion of right knee: (3) Ambulatory dysfunction: (4) Knee pain: (5) Atrial fibrillation: Plan Hemarthrosis R. knee, Effusion, knee pain - Knee CT: hemarthrosis in R knee - Uric acid level wnl - Ortho consulted: aspiration of knee completed and synovial fluid/blood sent for analysis - Colchicine BID, Solumedrol 20mg q8h - hydrocodone/morphine for pain management - Knee synovial fluid: Positive for blood and WBC, negative for crystals - Likely spontaneous hemarthrosis following click in knee, exacerbated by eliquis use. - Patient d/c tomorrow with eliquis held for 1 week to allow for healing of hemarthrosis Ambulatory dysfunction - PT/OT consults - Recommend further rehab, awaiting insurance approval A-fib - Eliquis held for active bleed in R. knee joint - Plans to d/c tomorrow and hold eliquis for 1 week to allow for clotting in the knee joint. Total Time Total Time Spent Total Time Spent (In Minutes): <30 Discharge Plan Discharge Items Patient Disposition: Transfer Alf Fac Reason For Visit: RIGHT KNEE PAIN, SWELLING, AMBULATORY DYSFUNCTION Discharge Diagnosis: R. Knee Hemarthrosis Activity: Per Instructions section Non-emergency contact: Primary Care Provider Call non-emergency contact if: your symptoms worsen and your pain is not controlled Follow-up/Referrals: Eladio Knight [Primary Care Provider] - Diet: Regular Addtl Attending Provider Instructions: Hemarthrosis R. knee, Effusion, knee pain - Knee CT: hemarthrosis in R knee - Uric acid level wnl - Ortho consulted: aspiration of knee completed and synovial fluid/blood sent for analysis - Colchicine BID, Solumedrol 20mg q8h - hydrocodone/morphine for pain management - Knee synovial fluid: Positive for blood and WBC, negative for crystals - Likely spontaneous hemarthrosis following click in knee, exacerbated by eliquis use. - Patient d/c tomorrow with Eliquis held for 1 week to allow for healing of hemarthrosis Ambulatory dysfunction - PT/OT consults - Recommend further rehab, awaiting insurance approval A-fib - Eliquis held for active bleed in R. knee joint - Plans to d/c tomorrow and hold Eliquis for 1 week to allow for clotting in the knee joint. Pending Studies at Discharge: No Stand-Alone Forms: My [facility] Skilled Items Patient informed of condition?: Yes DNR: No Discharge Level of Care: Skilled Communicable Disease: No Discharge Prognosis: Stable Lines: None Urinary Catheter: No Medications and DC Order Prescriptions: Continued eplerenone 25 mg tablet 25 mg PO QAM levothyroxine 25 mcg capsule 25 mcg PO QAM diltiazem HCl [DILT-XR] 120 mg capsule,ext.rel 24h degradable 120 mg PO DAILY coenzyme Q10 [Co Q-10] 100 mg Capsule 100 mg PO QPM cyanocobalamin (vitamin B-12) [Vitamin B-12] 1,000 mcg Tablet 1,000 mcg PO QPM cholecalciferol (vitamin D3) [Vitamin D3] 25 mcg (1,000 unit) Tablet 25 mcg PO QPM Held Eliquis 5 mg tablet 5 mg PO BID Hold Instructions: Resume on 01/24/24. Please hold for 1 week allowing acute knee bleed to heal. Resume in 1 week for a-fib anti-coagulation Discharge Orders: Discharge Order (Routine); Ordered 01/17/24 Ordered By: Beau Orta/Other Patient Handouts: Bernie CM for Pain Admission Data Admit Date/Time: 01/14/24 20:07 Attending Provider: Omi Cisneros Admit Provider: Tone Cruz Primary Care Provider: Eladio Knight Other Providers: Tone Cruz; Alvarez Reddy Other Interventions: Discharge Summary Assessment (RN) Last Done: 01/17/24 10:46 Supervising Physician Co-Signing Physician Notes I personally examined the patient and verified all duarte points of history and exam, discussed case, and agree with decision making with Dr Guajardo very much wants to get out of the hospital vitals noted nad breathing unlabored no accessory muscles good effort knee effusion/pain - all blood, no crystals - spontaneous hemarthrosis in the setting of chronic anticoagulation use for afib. improving. PT/OT eval and treat. ready for short stay at SNF for ongoing therapy. resume anticoagulation ~1wk otherwise as above Resident Activity Tracking Resident Involvement: Resident Care Provided Care Provided: Adult Hospital Medicine
[2024-01-17 08:06] LABS: Hematocrit (blood only) 41.6 % (37.0-47.0); Hemoglobin 14.3 g/dl (12.0-16.0); Mean Corpuscular Hemoglobin 30.3 pg (25.0-34.0); Mean Corpuscular Hgb Conc 34.4 g/dL (32.0-36.0); Mean Corpuscular Volume 88.1 fL (80.0-100.0); Mean Platelet Volume 10.1 fL (9.4-12.4); Platelet Count 239 K/uL (130-400); RDW Coefficient of Variation 13.8 % (11.5-14.5); RDW Standard Deviation 44.6 fL (36.4-46.3); Red Blood Count 4.72 M/uL (4.20-5.40); White Blood Count 11.69 K/ul (4.8-10.8)
[2024-01-17 08:29] LABS: Basophils # (auto) 0.02 K/uL (0.00-0.20); Basophils % (auto) 0.2 %; Immature Granulocytes # (auto) 0.15 K/uL (0.01-0.20); Immature Granulocytes % (auto) 1.3 %; Lymphocytes # (auto) 0.51 K/uL (1.20-3.40); Lymphocytes % (auto) 4.4 %; Monocytes # (auto) 0.33 K/uL (0.11-0.59); Monocytes % (auto) 2.8 %; Neutrophils # (auto) 10.68 K/uL (1.40-6.50); Neutrophils % (auto) 91.3 %
[2024-01-17 08:31] LABS: Albumin Level 4.1 gm/dl (3.4-5.0); BUN Creatinine Ratio 38.8 (10-20); Calcium 9.3 mg/dl (8.6-10.3); Creatinine Clr Calc Pharmacy 46.7 ml/min; Phosphorus 3.8 mg/dl (2.5-4.9); Potassium 4.3 mmol/L (3.5-5.1)
[2024-01-17 10:35] VITALS: BP 147/88; PULSE 82
--- NOTE | 2024-01-17 18:10 | Billing Data ---
Date of Service January 17, 2024 Coding Level of Care Code 29063 IN/OBS DISCH 30 MIN/LESS
== END 2024-01-17 10:47 ==
LOC: ED 14:34 → 3N 14:34 → SUATTDRO 20:07 → 3N 21:35